=== PATIENT | male | born 1985 | race Caucasian/White ===

== ENCOUNTER 2021-06-08 19:06 | Emergency (ER) | payer BC ==
--- NOTE | 2021-06-08 19:37 | EDM.PDOC ---
ED HPI GENERAL MEDICAL PROBLEM - General Chief Complaint: Abdominal Pain Stated Complaint: PAIN IN LOWER ABDOMAN Time Seen by Provider: 06/08/21 19:55 Source of Information: Reports: Patient History Limitations: Reports: No Limitations - History of Present Illness INITIAL COMMENTS - FREE TEXT/NARRATIVE: Patient states he has been having right lower quadrant intermittent abdominal pain that he rates about a 2 out of 10, dull pressure for the last 5 days wanted to come in and check out tonight to make sure he is not having any appendicitis. He states he had some trouble with bowel movements over the last couple days from firm to loose and then going 1 day and not going the next. He does admit he does not drink and much water and has had some intermittent diet changes. He has no abdominal issues no known family abdominal issues or cancers he has never had a colonoscopy in the past He has no other complaints at this time Duration: Day(s): Quality: Reports: Other (See HPI above) Severity: Mild Improves with: Reports: Other (Time the episodes may last anywhere from a few minutes to a few hours but the pain never really gets above a 2 or 3) Associated Symptoms: Reports: No Other Symptoms - Related Data Allergies Allergy/AdvReac Type Severity Reaction Status Date / Time No Known Allergies Allergy Verified 06/08/21 20:14 ED ROS GENERAL - Review of Systems Review Of Systems: See Below Constitutional: Reports: No Symptoms HEENT: Reports: No Symptoms Respiratory: Reports: No Symptoms Cardiovascular: Reports: No Symptoms Endocrine: Reports: No Symptoms GI/Abdominal: Reports: Abdominal Pain, Other (Patient states is not really abdominal pain but more of a discomfort). Denies: Bloody Stool, Constipation, Diarrhea, Decreased Appetite, Distension, Flatus, Melena, Nausea, Stool Incontinence, Vomiting : Reports: No Symptoms Musculoskeletal: Reports: No Symptoms Skin: Reports: No Symptoms Neurological: Reports: No Symptoms Psychiatric: Reports: No Symptoms Hematologic/Lymphatic: Reports: No Symptoms Immunologic: Reports: No Symptoms ED EXAM, GI/ABD - Physical Exam Exam: See Below Exam Limited By: No Limitations General Appearance: Alert, WD/WN, No Apparent Distress Throat/Mouth: Normal Inspection, Normal Lips, Normal Teeth, Normal Gums, Normal Oropharynx, Normal Voice, No Airway Compromise Neck: Normal Inspection, Supple, Non-Tender, Full Range of Motion Respiratory/Chest: No Respiratory Distress, Lungs Clear, Normal Breath Sounds, No Accessory Muscle Use, Chest Non-Tender GI/Abdominal Exam: Normal Bowel Sounds, Soft, Non-Tender, No Organomegaly, No Distention, No Abnormal Bruit, No Mass, Other (Patient jumping up and down on the floor with no acute distress noted negative Bakari's negative McBurney's negative psoas obturator negative pelvic rock no CVA tenderness). No: Guarding, Rigid, Rebound, Tender Back Exam: Full Range of Motion Extremities: Normal Inspection, Normal Range of Motion, Non-Tender Neurological: Alert, Oriented, CN II-XII Intact, Normal Cognition, Normal Gait, No Motor/Sensory Deficits Psychiatric: Normal Affect, Normal Mood Skin Exam: Warm, Dry, Intact, Normal Color, No Rash Lymphatic: No Adenopathy Course - Vital Signs Text/Narrative:: Patient instructed to drink some apple juice and raisin Bran and plenty of fluids over the next several days to see if this help relieve any of the discomfort also recommended that he take Gas-X at least twice a day see if this helped any and follow-up with a primary care provider in the next 24 to 48 hours Last Recorded V/S: Last Vital Signs Temp 36.6 C 06/08/21 19:51 Pulse 88 06/08/21 19:51 Resp 19 06/08/21 19:51 BP 144/91 H 06/08/21 19:51 Pulse Ox 96 06/08/21 19:51 Departure - Departure Time of Disposition: 19:35 Disposition: Home, Self-Care 01 Condition: Good Clinical Impression: Abdominal discomfort - Discharge Information *PRESCRIPTION DRUG MONITORING PROGRAM REVIEWED*: No *COPY OF PRESCRIPTION DRUG MONITORING REPORT IN PATIENT TEETEE: No Instructions: Abdominal Pain, Adult, [id number] Referrals: Sheeba Parnell, [Physician] - Forms: ED Department Discharge Additional Instructions: Follow-up with your primary care doctor in the next 24 to 48 hours I would eat raisin Bran and drink some apple juice for the next couple of days make sure you drink plenty water recommend half a gallon a day Return to emergency room if anything changes or gets worse Sepsis Event Note (ED) - Focused Exam Vital Signs: Vital Signs Temp Pulse Resp BP Pulse Ox 06/08/21 19:51 36.6 C 88 19 144/91 H 96 - Problem List & Annotations (1) Abdominal discomfort SNOMED Code(s): 20722138 Code(s): R10.9 - UNSPECIFIED ABDOMINAL PAIN Status: Acute
== END 2021-06-08 20:28 | disposition home or self-care (01) ==
LOC: VM.ED 19:06
DX: R10.31 Right lower quadrant pain (principal)
CPT/HCPCS: 99283